=== PATIENT | female | born 1970 | race Caucasian/White ===

== ENCOUNTER 2021-03-16 09:36 | Outpatient (CLI) | payer BC | END 2021-03-16 23:59 | disposition home or self-care (01) | LOC: RAD 09:36 | PROVIDERS: ATTEND Family Medicine | DX: R94.5 Abnormal results of liver function studies (principal); Z90.49 Acquired absence of other specified parts of digestive tract | CPT/HCPCS: 76700 ==

== ENCOUNTER 2022-11-07 12:39 | Emergency (ER) | payer BC ==
[~2022-11-07] VITALS: Ht 162.6 cm; Wt 131.8 kg
[2022-11-07 14:14] VITALS: BP 203/125; PULSE 106; TEMP 98.2; O2SAT 96
[2022-11-07 15:10] LABS: BILIRUBIN,URINE NEGATIVE (Neg); CLARITY,URINE CLEAR (Clear); COLOR,URINE YELLOW (Yellow); GLUCOSE, URINE NEGATIVE (Neg); KETONES,URINE NEGATIVE (Neg); LEUKOCYTE ESTERASE ,URINE NEGATIVE (Neg); NITRITES, URINE NEGATIVE (Neg); OCCULT BLOOD,URINE TRACE-INTACT (Neg); PH,URINE 5.5 (4.8-8.0); PROTEIN,URINE NEGATIVE (Neg); UROBILINOGEN,URINE 0.2 E.U/dL (0.2-1.0)
[2022-11-07 15:19] LABS: UA COLLECTION TYPE CLN CATCH MIDSTREAM
[2022-11-07 15:25] LABS: BACTERIA,URINE 2+ /HPF (Neg); MUCUS STRANDS FEW /LPF (Neg); SQUAMOUS EPITHELIAL CELL,UR MODERATE /LPF (FEW)
[2022-11-07 15:27] LABS: RBC,URINE 0-2 /HPF (0-2)
[2022-11-07] MEDS ORDERED: ketorolac tromethamine 15mg/ml inj. IM ONE (15:55)
[2022-11-07] MEDS ORDERED: ketorolac trometh. 30mg/ml inj. IM ONE (16:05)
[2022-11-07 16:06] VITALS: RESP 18
[2022-11-07] MEDS ORDERED: CEFD300C3 PO (16:10)
== END 2022-11-07 16:45 | disposition home or self-care (01) ==
LOC: ER 12:40
DX: N39.0 Urinary tract infection, site not specified (principal); Z79.899 Other long term (current) drug therapy
CPT/HCPCS: 81001; 87088; 96372; 99283; J1885

== ENCOUNTER 2023-04-03 07:34 | Outpatient (CLI) | payer BC ==
[~2023-04-03] VITALS: Ht 162.6 cm; Wt 129.3 kg
[2023-04-03] MEDS ORDERED: albuterol 2.5 MG/3 ML nebule NEB ONE (07:55)
[2023-04-03 08:00] VITALS: PULSE 80; RESP 18; O2SAT 96
== END 2023-04-03 23:59 | disposition home or self-care (01) ==
LOC: RT 07:34
PROVIDERS: ATTEND Family Medicine
DX: J45.909 Unspecified asthma, uncomplicated (principal); R06.02 Shortness of breath
CPT/HCPCS: 94060; 94760; J7030